=== PATIENT | female | born 1945 | race Caucasian/White ===

== ENCOUNTER 2023-04-26 19:02 | Emergency (ER) | payer BC, MEDICAID ==
[~2023-04-26] VITALS: Ht 154.9 cm; Wt 55.0 kg
[2023-04-26 19:03] VITALS: BP 143/75; PULSE 96; RESP 16; TEMP 98.4; O2SAT 98
== END 2023-04-27 00:54 | disposition left against medical advice (07) ==
LOC: ER 19:02
DX: R21 Rash and other nonspecific skin eruption (principal); Z53.21 Procedure and treatment not carried out due to patient leaving prior to being seen by health care provider
CPT/HCPCS: 99281